=== PATIENT | female | born 1940 | race Caucasian/White ===

== ENCOUNTER 2020-04-24 14:27 | Outpatient (CLI) | payer MEDICARE, OTHER, SELFPAY ==
--- NOTE | 2020-05-01 09:26 | WPDPFTINT ---
PFT Interpretation PFT Interpretation: This PFT met all criteria for ATS standards and reproducibility FEV/FVC re bronchodilator 63% which improved to 72% post bronchodilator FEV1 100% FVC 95% TLC 107% RV 119% RV/TLC 47% DLCO 64% when adjusted for alveolar volume but not adjusted for hemoglobin Flow volume loops showed some expiratory coving Impression: Mild air flow obstruction with air trapping and mildly reduced diffusion capacity. This pattern fits that of COPD. Clinical correlation is advised.
--- NOTE | 2020-05-01 09:44 | WPDSIXMINUTE ---
Six Minute Walk Six Minute Walk: The patients O2 sats started at 97% and dropped as low as 95% Total walk distance 274.32 meters conclusion: This patient does not qualify for home oxygen use
== END 2020-04-24 14:28 | disposition home or self-care (01) ==
PROVIDERS: PCP Internal Medicine; Visit Provider Internal Medicine Pulmonary Disease
DX: R06.09 Other forms of dyspnea (principal); R94.2 Abnormal results of pulmonary function studies
CPT/HCPCS: 94060; 94618; 94726; 94729

== ENCOUNTER 2023-01-16 20:10 | Observation (INO) | payer MEDICARE, OTHER, SELFPAY ==
[2023-01-16] VITALS (20 sets, daily range): BP systolic 145–168; BP diastolic 74–98; PULSE 85–86; RESP 18; TEMP 36.9; O2SAT 91–100
--- NOTE | ~2023-01-16 | XR_ITS ---
EXAMINATION: XR knee RT min 4V DATE: 01/16/2023 20:38 INDICATION: Right knee pain post fall TECHNIQUE: Anteroposterior, 2 oblique and crosstable lateral views of the right knee were obtained COMPARISON: None. FINDINGS: Cemented right total knee arthroplasty with patellar resurfacing which appears well seated in near an atomic alignment. No periprosthetic lucency to suggest loosening or infection. No fracture. Large rig ht knee joint effusion. IMPRESSION: 1. Large right knee joint effusion. No acute osseous abnormality. Reviewed, dictated and finalized at location A.
--- NOTE | ~2023-01-16 | CT_ITS ---
EXAMINATION: CT knee RT wo con DATE: 01/16/2023 22:28 INDICATION: Right knee pain post injury TECHNIQUE: High resolution computed tomography (CT) of the right knee was performed without intraveno us contrast. Additional sagittal and coronal reconstructions were performed. Automated exposure contr ol and iterative reconstruction technique were employed. The dose-length product was 473.02 mGy-cm. COMPARISON: None FINDINGS: Right total knee arthroplasty with patellar resurfacing. Small nondisplaced fracture fragment underly ing the anterolateral rim of the trachea the tibial component. This is best appreciated on axial seri es 3, images 58 and 59 aNo evident fracture of the fixation cement or surrounding increased lucency t o suggest loosening. The femoral and patellar components are also well seated with no periprosthetic lucency or fracture. Alignment remains essentially anatomic. Moderate-sized layering lipohemarthrosis . IMPRESSION: 1. Moderate-sized lipohemarthrosis resulting from a nondisplaced small fracture underlying the chinmay lateral margin of the tray of the tibial component of a right total knee arthroplasty. Reviewed, dictated and finalized at location A. IMPRESSION: 1. Moderate-sized lipohemarthrosis resulting from a nondisplaced small fracture underlying the anterolateral margin of the tray of the tibial component of a r ight total knee arthroplasty.
--- NOTE | 2023-01-16 20:31 | ED.LOWEXIN ---
HPI - Extremity Injury (Lower) General Chief Complaint: Extremity Injury, Lower <Hallie Brand PA-C - Last Filed: 01/17/23 01:33> Stated Complaint: fall <DEVON Perdomo Last Filed: 01/17/23 01:33> Time Seen by Provider: 01/16/23 20:18 <DEVON Perdomo Last Filed: 01/17/23 01:33> Source: patient <DEVON Perdomo Last Filed: 01/17/23 01:33> Mode of arrival: EMS <DEVON Perdomo Last Filed: 01/17/23 01:33> Limitations: no limitations <DEVON Perdomo Last Filed: 01/17/23 01:33> History of Present Illness HPI Narrative: This is a 82-year-old female that presents to the emergency department after a ground-level fall with right knee injury. Reports she tripped and fell onto her right knee. She did not hit her head or lose consciousness. She was not having any prodromal symptoms. Reports since she has had swelling and pain to the right knee with decreased range of motion. She has previously had this knee replaced. Denies numbness. <Hallie Brand PA-C - Last Filed: 01/17/23 01:33> Related Data Home Medications: Home Medications Medication Instructions Recorded Confirmed calcium carbonate 500 mg calcium 500 mg PO DAILY 12/19/20 01/17/23 (1,250 mg) tablet (Calcium 500) diclofenac sodium 75 mg 75 mg PO BID 12/19/20 01/17/23 tablet,delayed release hydrochlorothiazide 25 mg tablet 25 mg PO DAILY 12/19/20 01/17/23 multivitamin (Daily Multi-Vitamin 1 tablet PO DAILY 12/19/20 01/17/23 tablet) omega 7-wre-wel-fish oil 300 2 cap PO BID 12/19/20 01/17/23 mg-1,000 mg capsule (Fish Oil) sertraline 50 mg tablet (Zoloft) 100 mg PO DAILY 12/19/20 01/17/23 irbesartan 75 mg tablet (Avapro) 75 mg PO HS 01/17/23 01/17/23 simvastatin 20 mg tablet 20 mg PO HS 01/17/23 01/17/23 <Hallie Brand PA-C - Last Filed: 01/17/23 01:33> Allergies/Adverse Reactions: Allergies Allergy/AdvReac Type Severity Reaction Status Date / Time nickel Allergy Mild Rash Verified 01/17/23 02:38 atenolol Allergy Unknown unknown Verified 01/17/23 02:37 metoprolol Allergy Unknown unknown Verified 01/17/23 02:37 <Hallie Brand PA-C - Last Filed: 01/17/23 01:33> Review of Systems Review of Systems: CONSTITUTIONAL: Denies fever MUSCULOSKELETAL: Reports joint pain and myalgia. Denies back pain NEUROLOGIC: Denies numbness, or weakness. <DEVON Perdomo Last Filed: 01/17/23 01:33> All systems reviewed & are unremarkable except as noted in HPI and below <Hallie Brand PA-C - Last Filed: 01/17/23 01:33> [facility] Past Medical History Medical History: Medical History Endometriosis History of pacemaker History of Parkinson's disease HLD (hyperlipidemia) HTN (hypertension) <Hallie Brand PA-C - Last Filed: 01/17/23 01:33> Surgical History Surgical History: Surgical History H/O: hysterectomy History of arthroscopy of right shoulder History of bilateral knee replacement <DEVON Perdomo Last Filed: 01/17/23 01:33> Family History Family History: Family History Father Heart attack <Hallie Brand PA-C - Last Filed: 01/17/23 01:33> Social History Social History: Social History Smoking status: Never smoker Alcohol intake: never Substance use: never Substance use type: does not use Lack of Transportation: No Lack of Food: Never True Current Housing: I Have Housing Concerned About Future Housing: No Difficulty Paying Gas/Electric Bills: No Difficulty Paying for Meds: No Currently Unemployed: No Education: Master's Degree or Higher Difficulty w/ Childcare or Family Care: No Living arrangements: with family Gender identity (if verbalized by the patient): Dawnaa
[2023-01-16] MEDS: MORPHINE SULFATE (*CRX) 4 MG/ML INJ IV PUSH (20:55)
[2023-01-16] MEDS: ONDANSETRON INJ 4 MG/2 ML VIAL IV PUSH (20:56)
--- NOTE | 2023-01-16 21:55 | PC.NURSE ---
nehal wrapped and will ambulate
[2023-01-17] VITALS (7 sets, daily range): BP systolic 115–156; BP diastolic 64–84; PULSE 86–94; RESP 16–18; TEMP 36.4–36.9; O2SAT 94–96; BMI 25.0
[2023-01-17] MEDS: HYDROcodone/acetaminophen (*CRX) 5-325 MG TABLET 1 TAB PO (00:56)
[2023-01-17 01:03] LABS: Alanine Aminotransferase 14 U/L (6-35); Albumin Level 3.8 g/dL (3.5-5.1); Alkaline Phosphatase 94 U/L (38-126); Anion Gap 3 mmol/L (8-16); Aspartate Amino Transferase 22 U/L (14-36); Bilirubin,Total 0.4 mg/dL (0.2-1.3); Blood Urea Nitrogen 19 mg/dL (7-17); Calcium 8.6 mg/dL (8.4-10.2); Carbon Dioxide 32 mmol/L (22-30); Chloride 99 mmol/L (98-107); Estimated CRCL calculation 43 ml/min; Estimated Glomerular Filt Rate > 60; Glucose 127 mg/dL (65-110); Potassium 3.7 mmol/L (3.4-5.0); Sodium 134 mmol/L (137-145)
[2023-01-17 01:14] LABS: Basophils Percent Auto 0.3 % (0.2-1.2); Eosinophils Absolute Auto 0.1 K/mm3 (0-0.3); Eosinophils Percent Auto 0.8 % (0-4.4); Hematocrit 35.3 % (37.0-47.0); Hemoglobin 11.6 g/dL (12.0-15.0); Immature Granulocyte Absolute 0.04 K/mm3 (0.00-0.031); Immature Granulocyte Percent A 0.3 % (0-0.5); Lymphocytes Absolute Auto 0.88 K/mm3 (0.9-3.2); Lymphocytes Percent Auto 7.6 % (18.3-44.2); Mean Corpuscular HGB Conc 32.9 g/dl (32-36); Mean Corpuscular Hemoglobin 30.1 pg (26-34); Mean Corpuscular Volume 91.5 fl (80-100); Mean Platelet Volume 9.5 fl (7.4-10.4); Monocytes Absolute Auto 0.9 K/mm3 (0.1-0.6); Neutrophils Absolute Auto 9.6 K/mm3 (1.3-6.7); Platelet Count Result 243 k/mm3 (150-375); Red Blood Count 3.86 M/mm3 (4.2-5.4); Red Cell Distribution Width 12.7 % (11.5-14.5); White Blood Count 11.6 K/mm3 (4.5-10.0)
--- NOTE | 2023-01-17 01:16 | PC.NURSE ---
pt given pain medication and immobilizer placed.
--- NOTE | 2023-01-17 01:31 | PC.NURSE ---
nehal wrap removed and knee immobilizer. Lolis
--- NOTE | 2023-01-17 02:30 | ADMGEN ---
This patient, Lizy Persaud, was admitted to Medical Room 342-01. Patient/family oriented to hospital policies and general routines including ID bracelet, bed and alarms, visiting hours, pain management, procedures, bathroom and other care routines, personal items, smoking policy, room service/diet, and visiting hours. Information on how to activate the Rapid Response Team has been discussed. Patient/Family are encouraged to report perceived risks to care and to ask questions if they do not understand what they are told or what they should do.
--- NOTE | 2023-01-17 03:43 | PC.NURSE ---
PATIENT VOICED REQUEST FOR NO LIFE SUSTAINING INTERVENTIONS. WITNESSED BY Santy Randolph
--- NOTE | 2023-01-17 09:02 | PM.IMHP ---
H&P: HPI History of Present Illness Date/Time: 01/17/23 09:02 Chief Complaint: This is an 82 year old female with a PMH of parkinsons's who follows with neurology here, HTN, anxiety, HLD, arthritis, and heart disease. She comes to the ED today after falling and landing on her right knee. She has a history of R knee replacement. Today she has swelling and pain to the knee with decreased ROM. She denies numbness. CT of the knee with no visual fracture, however it shows lipohemarthrosis which is usually seen in setting of fracture. Will consult orthopedics to help with further fracture rule out. Patient is unable to have an MRI because of her pacemaker per radiology. 01/17: Patient is seen today resting in bed with family at bedside. She appears well. She reports falling at home after getting tripped up on her carpet. She was wearing nonskid shoes and she does admit to a shuffling her feet related to her Parkinson's. Unfortunately she tripped over her feet and fell onto her right knee. Since then she has redness and swelling to the right knee with limited range of motion and pain elicited with lifting her legs. She reports that she had a knee replacement done in that leg. She lives at home with her who has non treatable lung cancer so she normally cares for him and she is concerned about needing assistance herself now that she has injured her leg. It sounds like she has good family support that will be able to help with her recovery. She denies dizziness and headache. No chest pain but she does report some shortness of breath when ambulating more than 100 ft which she contributes to her Parkinson's. Denies cough fever chills. She reports a decreased appetite over the last year with a 10 lb weight loss. She says that food just does not taste as well as it used to and she also just does not like to cook as much as she used to. She denies nausea vomiting diarrhea. Sometimes she has constipation but generally she goes once a day. If she has trouble she will take magnesium and this seems to help. Last bowel movement was yesterday. Otherwise she has no other complaints. I have reviewed the plan of care with her today with consulting Ortho. And getting an MRI however the bedside nurse updated me that patient is unable to have an MRI because of her pacemaker. Await further recs from Ortho. Right now her right leg is in a knee immobilizer and she is on bedrest. Review of Systems Review of Systems: All systems reviewed & are unremarkable except as noted in HPI and below PMFSH Past Medical History Medical History Endometriosis History of pacemaker History of Parkinson's disease HLD (hyperlipidemia) HTN (hypertension) Surgical History Surgical History H/O: hysterectomy History of arthroscopy of right shoulder History of bilateral knee replacement Family History Family History Father Heart attack Social History Social History Smoking status: Never smoker Alcohol intake: never Substance use: never Substance use type: does not use Lack of Transportation: No Lack of Food: Never True Current Housing: I Have Housing Concerned About Future Housing: No Difficulty Paying Gas/Electric Bills: No Difficulty Paying for Meds: No Currently Unemployed: No Education: Master's Degree or Higher Difficulty w/ Childcare or Family Care: No Living arrangements: with family Gender identity (if verbalized by the patient): Female Spiritual care concerns: No Meds Home Medications and Allergies Home Medications Medication Instructions Recorded Confirmed Type calcium carbonate 500 mg calcium 500 mg PO DAILY 12/19/20 01/17/23 History (1,250 mg) tablet (Calcium 500) diclofenac sodium 75 mg 7
--- NOTE | 2023-01-17 10:09 | PM.CNOR ---
Assessment and Plan Assessment and plan (1) Periprosthetic fracture around internal prosthetic knee joint: Code(s): M97.8XXA - Periprosthetic fracture around other internal prosthetic joint, initial encounter; Z96.659 - Presence of unspecified artificial knee joint Status: Acute (2) Status post total knee replacement, right: Code(s): Z96.651 - Presence of right artificial knee joint Status: Acute (3) Fracture of proximal end of right tibia: Qualifiers: Encounter type: initial encounter Fracture type: closed Fracture morphology: other fracture Qualified Code(s): S82.191A - Other fracture of upper end of right tibia, initial encounter for closed fracture Code(s): S82.101A - Unspecified fracture of upper end of right tibia, initial encounter for closed fracture Status: Acute Plan Non displaced fracture of the cortical margin of the proximal lateral tibia plateau. Implants appear intact. May mobilize as tolerated, partial wb with knee immobilizer when ambulating. Therapy consulted. Knee immobilizer fit and adjusted now. Good candidate for rehab. Anticipate excellent rehab potential over the next 2-4 weeks. History of Present Illness HPI Consult date: 01/18/23 Consult reason: fracture Chief complaint: Internal Derangement Right Knee/Gait Disturbance Narrative: 82-year-old female status post total knee in the past previously doing well, tripped and fell onto the right knee. Complains of severe pain and inability to manage at home. Went to the emergency department and was admitted for further evaluation and management. Great difficulty putting any weight on the knee and pain with any activity. PMH of Parkinson's who follows with neurology here, HTN, anxiety, HLD, arthritis, and heart disease.? Review of Systems Review of Systems: All systems reviewed & are unremarkable except as noted in HPI and below PMFSH Past Medical History Medical History Endometriosis History of pacemaker History of Parkinson's disease HLD (hyperlipidemia) HTN (hypertension) Surgical History Surgical History H/O: hysterectomy History of arthroscopy of right shoulder History of bilateral knee replacement Family History Family History Father Heart attack Social History Social History Smoking status: Never smoker Alcohol intake: never Substance use: never Substance use type: does not use Lack of Transportation: No Lack of Food: Never True Current Housing: I Have Housing Concerned About Future Housing: No Difficulty Paying Gas/Electric Bills: No Difficulty Paying for Meds: No Currently Unemployed: No Education: Master's Degree or Higher Difficulty w/ Childcare or Family Care: No Living arrangements: with family Gender identity (if verbalized by the patient): Female Spiritual care concerns: No Meds Home Medications and Allergies Home Medications Medication Instructions Recorded Confirmed Type calcium carbonate 500 mg calcium 500 mg PO DAILY 12/19/20 01/17/23 History (1,250 mg) tablet (Calcium 500) diclofenac sodium 75 mg 75 mg PO BID 12/19/20 01/17/23 History tablet,delayed release hydrochlorothiazide 25 mg tablet 25 mg PO DAILY 12/19/20 01/17/23 History multivitamin (Daily Multi-Vitamin 1 tablet PO DAILY 12/19/20 01/17/23 History tablet) omega 5-loe-rrn-fish oil 300 2 cap PO BID 12/19/20 01/17/23 History mg-1,000 mg capsule (Fish Oil) sertraline 50 mg tablet (Zoloft) 100 mg PO DAILY 12/19/20 01/17/23 History carbidopa 25 mg-levodopa 100 mg See Rx Instructions .Route 01/13/23 01/17/23 Rx tablet .COMPLEX #450 tabs clorazepate dipotassium 3.75 mg 3.75 mg PO QHS PRN anxiety #90 tabs 01/13/23 01/17/23 Rx tablet cindy
[2023-01-17] MEDS: CARBIDOPA/LEVODOPA 25/100 MG TABLET 1 TABLET BY MOUTH ×2 (16:13→21:12)
[2023-01-17] MEDS: CARBIDOPA/LEVODOPA 12.5/50 MG TABLET 1 TABLET PO (16:13)
[2023-01-17] MEDS: OMEGA 3 POLYUNSAT FATTY ACIDS 1 GM CAP 2 GM PO (16:13)
[2023-01-18 03:34] VITALS: BP 144/72; PULSE 86; RESP 18; TEMP 36.2; O2SAT 91
[2023-01-18 06:02] LABS: Basophils Percent Auto 0.2 % (0.2-1.2); Eosinophils Absolute Auto 0.2 K/mm3 (0-0.3); Eosinophils Percent Auto 2.3 % (0-4.4); Hemoglobin 11.3 g/dL (12.0-15.0); Immature Granulocyte Absolute 0.02 K/mm3 (0.00-0.031); Immature Granulocyte Percent A 0.2 % (0-0.5); Lymphocytes Absolute Auto 0.91 K/mm3 (0.9-3.2); Lymphocytes Percent Auto 10.7 % (18.3-44.2); Mean Corpuscular HGB Conc 32.3 g/dl (32-36); Mean Corpuscular Hemoglobin 29.9 pg (26-34); Mean Corpuscular Volume 92.6 fl (80-100); Mean Platelet Volume 9.9 fl (7.4-10.4); Monocytes Absolute Auto 0.8 K/mm3 (0.1-0.6); Monocytes Percent Auto 9.5 % (2.6-8.5); Neutrophils Absolute Auto 6.6 K/mm3 (1.3-6.7); Neutrophils Percent Auto 77.1 % (45.5-73.1); Platelet Count Result 201 k/mm3 (150-375); Red Blood Count 3.78 M/mm3 (4.2-5.4); Red Cell Distribution Width 12.5 % (11.5-14.5); White Blood Count 8.5 K/mm3 (4.5-10.0)
[2023-01-18 06:19] LABS: Alanine Aminotransferase 11 U/L (6-35); Albumin Level 3.5 g/dL (3.5-5.1); Alkaline Phosphatase 81 U/L (38-126); Anion Gap 2 mmol/L (8-16); Aspartate Amino Transferase 31 U/L (14-36); Bilirubin,Total 0.5 mg/dL (0.2-1.3); Blood Urea Nitrogen 16 mg/dL (7-17); Calcium 8.5 mg/dL (8.4-10.2); Carbon Dioxide 31 mmol/L (22-30); Chloride 101 mmol/L (98-107); Cholesterol 192 mg/dL (0-200); Estimated CRCL calculation 38 ml/min; Estimated Glomerular Filt Rate > 60; Glucose 101 mg/dL (65-110); HDL Direct 38 mg/dL; Phosphorus 3.1 mg/dL (2.5-4.5); Potassium 3.7 mmol/L (3.4-5.0); Sodium 134 mmol/L (137-145); Triglycerides 78 mg/dL (<150)
[2023-01-18 06:30] LABS: LDL Cholesterol Direct 124 mg/dL
[2023-01-18 06:32] LABS: Iron 32 ug/dL (37-170)
[2023-01-18 06:37] LABS: Vitamin D 25 Hydroxy 69.4 ng/mL
[2023-01-18 06:41] LABS: Percent Iron Saturation 13 % (20-50)
[2023-01-18 08:30] VITALS: BP 141/72
[2023-01-18] MEDS: IRBESARTAN 75 MG TABLET PO (08:36)
[2023-01-18] MEDS: MULTIVITAMINS THERAPEUTIC TAB (*BKC) 1 TABLET PO (08:36)
[2023-01-18] MEDS: OMEGA 3 POLYUNSAT FATTY ACIDS 1 GM CAP 2 GM PO ×2 (08:36→17:38)
[2023-01-18] MEDS: SERTRALINE HCL 50 MG TABLET PO (08:36)
[2023-01-18] MEDS: CYANOCOBALAMIN 500 MCG TABLET PO (08:36)
[2023-01-18] MEDS: FOLIC ACID 0.4 MG TABLET PO (08:36)
[2023-01-18] MEDS: CALCIUM CARBONATE (OSCAL) 500 MG TABLET PO (08:36)
[2023-01-18] MEDS: hydroCHLOROthiazide 25 MG TABLET PO (08:36)
--- NOTE | 2023-01-18 08:39 | PM.IMPN ---
Progress Note: A&P Assessment and Plan (1) Acute internal derangement of knee: Qualifiers: Laterality: right Qualified Code(s): M23.91 - Unspecified internal derangement of right knee Code(s): M23.90 - Unspecified internal derangement of unspecified knee Status: Acute Assessment and Plan: -Hemarthrosis right knee. Initial CT and XR show no obvious fracture but there are still concerns for occult fracture. -Unable to have MRI because of her pacemaker. -consulting orthopedics for further assistance in treatment, appreciate rec's. -Knee immobilizer in place. Activity as tolerated with partial weight bearing to RLE with knee immobilizer per ortho. -Iron low on labs but can't take oral ferrous sulfate with Parkinson meds. Will give 1 x infusion of IV iron before d/c. -PT/OT scheduled. Will see how patient does with mobility and therapy recs for dispo. If no intervention is necessary by ortho then she will be ready to d/c once we know where she is going for rehab vs snf. (2) Anxiety: Code(s): F41.9 - Anxiety disorder, unspecified Status: Acute Assessment and Plan: Stable. Takes hydroxyzine 10 mg PO prn. (3) Parkinsons: Code(s): G20 - Parkinson's disease Status: Acute Assessment and Plan: -Follows here at [facility] with neurology -Continue with Carbidopa 25 mg-Levodopa 100 mg (4) HTN (hypertension): Code(s): I10 - Essential (primary) hypertension Status: Acute Assessment and Plan: Blood pressures are elevated from baseline but this is likely pain related. Continue to monitor, ensure adequate pain regimen, and restart home anti-hypertensives. (5) HLD (hyperlipidemia): Code(s): E78.5 - Hyperlipidemia, unspecified Status: Acute Assessment and Plan: -continue fish oil -lipid panel WNL Subjective Date/time seen: 01/18/23 08:39 Interval history: Chief Complaint: This is an 82 year old female with a PMH of parkinsons's who follows with neurology here, HTN, anxiety, HLD, arthritis, and heart disease. She comes to the ED today after falling and landing on her right knee. She has a history of R knee replacement. Today she has swelling and pain to the knee with decreased ROM. She denies numbness. CT of the knee with no visual fracture, however it shows lipohemarthrosis which is usually seen in setting of fracture. Will consult orthopedics to help with further fracture rule out. Patient is unable to have an MRI because of her pacemaker per radiology. 01/17:? Patient is seen today resting in bed with family at bedside.? She appears well.? She reports falling at home after getting tripped up on her carpet.? She was wearing nonskid shoes and she does admit to a shuffling her feet related to her Parkinson's.? Unfortunately she tripped over her feet and fell onto her right knee.? Since then she has redness and swelling to the right knee with limited range of motion and pain elicited with lifting her legs.? She reports that she had a knee replacement done in that leg.? She lives at home with her who has non treatable lung cancer so she normally cares for him and she is concerned about needing assistance herself now that she has injured her leg.? It sounds like she has good family support that will be able to help with her recovery.? She denies dizziness and headache.? No chest pain but she does report some shortness of breath when ambulating more than 100 ft which she contributes to her Parkinson's.? Denies cough fever chills.? She reports a decreased appetite over the last year with a 10 lb weight loss.? She says that food just does not taste as well as it used to and she also just does not like to cook as much as she used to.? She denies nausea vomiting diarrhea.? Sometimes she has constipation but generally she goes once a day.? If she has trouble she will take magnesium and this seems to help.? Last bowel movement was yesterday.? Otherwise she has
--- NOTE | 2023-01-18 09:06 | PCPTNOTE ---
Patient refused treatment this session. Patient reported she did not feel like doing therapy at this time and asked PT to come back later. Patient reported I'm just really down in the dumps right now. RN aware.
[2023-01-18] MEDS: IRON SUCROSE COMPLEX 200 MG in SODIUM CHLORIDE 0.9% IV 50 ML 120 MG IVPB (09:17)
[2023-01-18 11:49] VITALS: BMI 25.0
[2023-01-18] MEDS: CARBIDOPA/LEVODOPA 12.5/50 MG TABLET 1 TABLET PO ×2 (12:39→15:12)
[2023-01-18] MEDS: CARBIDOPA/LEVODOPA 25/100 MG TABLET 1 TABLET BY MOUTH ×3 (12:39→20:39)
[2023-01-18 16:14] VITALS: BP 129/77; PULSE 90; RESP 18; TEMP 37.1; O2SAT 95
[2023-01-18 20:00] VITALS: BP 128/79; PULSE 90; RESP 18; TEMP 36.7; O2SAT 96
[2023-01-19 05:47] LABS: Basophils Percent Auto 0.2 % (0.2-1.2); Eosinophils Absolute Auto 0.2 K/mm3 (0-0.3); Eosinophils Percent Auto 2.6 % (0-4.4); Hemoglobin 11.6 g/dL (12.0-15.0); Immature Granulocyte Absolute 0.03 K/mm3 (0.00-0.031); Immature Granulocyte Percent A 0.3 % (0-0.5); Lymphocytes Absolute Auto 1.15 K/mm3 (0.9-3.2); Lymphocytes Percent Auto 13.2 % (18.3-44.2); Mean Corpuscular HGB Conc 32.2 g/dl (32-36); Mean Corpuscular Hemoglobin 29.7 pg (26-34); Mean Corpuscular Volume 92.3 fl (80-100); Mean Platelet Volume 9.8 fl (7.4-10.4); Monocytes Absolute Auto 0.9 K/mm3 (0.1-0.6); Monocytes Percent Auto 10.1 % (2.6-8.5); Neutrophils Absolute Auto 6.4 K/mm3 (1.3-6.7); Neutrophils Percent Auto 73.6 % (45.5-73.1); Platelet Count Result 223 k/mm3 (150-375); Red Cell Distribution Width 12.8 % (11.5-14.5); White Blood Count 8.7 K/mm3 (4.5-10.0)
[2023-01-19 05:50] VITALS: BP 104/53; PULSE 77; RESP 16; TEMP 36.7; O2SAT 93
[2023-01-19 06:02] LABS: Alanine Aminotransferase 16 U/L (6-35); Albumin Level 3.6 g/dL (3.5-5.1); Alkaline Phosphatase 83 U/L (38-126); Anion Gap 5 mmol/L (8-16); Aspartate Amino Transferase 23 U/L (14-36); Bilirubin,Total 0.6 mg/dL (0.2-1.3); Blood Urea Nitrogen 14 mg/dL (7-17); Carbon Dioxide 31 mmol/L (22-30); Chloride 98 mmol/L (98-107); Estimated CRCL calculation 43 ml/min; Estimated Glomerular Filt Rate > 60; Glucose 105 mg/dL (65-110); Potassium 3.5 mmol/L (3.4-5.0); Sodium 134 mmol/L (137-145)
--- NOTE | 2023-01-19 08:23 | PM.DS ---
DS: Admitting Diagnosis Discharge Date January 19 Admitting Diagnosis fall, right knee pain DS: Discharge Diagnosis Discharge Diagnosis (1) Acute internal derangement of knee: Qualifiers: Laterality: right Qualified Code(s): M23.91 - Unspecified internal derangement of right knee Code(s): M23.90 - Unspecified internal derangement of unspecified knee Status: Ruled-out Assessment and Plan: -Hemarthrosis right knee. Initial CT and XR show no obvious fracture but there are still concerns for occult fracture. -Unable to have MRI because of her pacemaker. -consulting orthopedics for further assistance in treatment, appreciate rec's. -Knee immobilizer in place. Activity as tolerated with partial weight bearing to RLE with knee immobilizer per ortho. -Iron low on labs but can't take oral ferrous sulfate with Parkinson meds. Will give 1 x infusion of IV iron before d/c. -PT/OT scheduled. Will see how patient does with mobility and therapy recs for dispo. If no intervention is necessary by ortho then she will be ready to d/c once we know where she is going for rehab vs snf. (2) Anxiety: Code(s): F41.9 - Anxiety disorder, unspecified Status: Acute Assessment and Plan: Stable. Takes hydroxyzine 10 mg PO prn. (3) Parkinsons: Code(s): G20 - Parkinson's disease Status: Acute Assessment and Plan: -Follows here at [facility] with neurology -Continue with Carbidopa 25 mg-Levodopa 100 mg (4) HTN (hypertension): Code(s): I10 - Essential (primary) hypertension Status: Acute Assessment and Plan: Blood pressures are elevated from baseline but this is likely pain related. Continue to monitor, ensure adequate pain regimen, and restart home anti-hypertensives. (5) HLD (hyperlipidemia): Code(s): E78.5 - Hyperlipidemia, unspecified Status: Acute Assessment and Plan: -continue fish oil -lipid panel WNL Plan Unfortunately patient's who has been on hospice today and the patient needs to leave the hospital to make arrangements. She is medically cleared for discharge we were just waiting for her to have therapy recommendations for placement. Liz, careers counsellor will give patient contact information for [facility] so that she may follow up with this for admission should she feel she is not doing well enough at home. DS: Summary Hospital Course Reason for hospitalization: fall Hospital Course: Chief Complaint: This is an 82 year old female with a PMH of parkinsons's who follows with neurology here, HTN, anxiety, HLD, arthritis, and heart disease. She comes to the ED today after falling and landing on her right knee. She has a history of R knee replacement. Today she has swelling and pain to the knee with decreased ROM. She denies numbness. CT of the knee with no visual fracture, however it shows lipohemarthrosis which is usually seen in setting of fracture. Will consult orthopedics to help with further fracture rule out. Patient is unable to have an MRI because of her pacemaker per radiology. 01/17:? Patient is seen today resting in bed with family at bedside.? She appears well.? She reports falling at home after getting tripped up on her carpet.? She was wearing nonskid shoes and she does admit to a shuffling her feet related to her Parkinson's.? Unfortunately she tripped over her feet and fell onto her right knee.? Since then she has redness and swelling to the right knee with limited range of motion and pain elicited with lifting her legs.? She reports that she had a knee replacement done in that leg.? She lives at home with her who has non treatable lung cancer so she normally cares for him and she is concerned about needing assistance herself now that she has injured her leg.? It sounds like she has good family support that will be able to help with her recovery.? She denies dizziness and headache.? No chest
--- NOTE | 2023-01-19 08:28 | PCPTNOTE ---
Physical therapy told to hold off on seeing patient secondary to patient's passed last night.
[2023-01-19] MEDS: CARBIDOPA/LEVODOPA 12.5/50 MG TABLET 1 TABLET PO (09:02)
[2023-01-19] MEDS: CYANOCOBALAMIN 500 MCG TABLET PO (09:02)
[2023-01-19] MEDS: OMEGA 3 POLYUNSAT FATTY ACIDS 1 GM CAP 2 GM PO (09:02)
[2023-01-19] MEDS: CARBIDOPA/LEVODOPA 25/100 MG TABLET 1 TABLET BY MOUTH (09:02)
[2023-01-19] MEDS: CALCIUM CARBONATE (OSCAL) 500 MG TABLET PO (09:02)
[2023-01-19] MEDS: MULTIVITAMINS THERAPEUTIC TAB (*BKC) 1 TABLET PO (09:02)
[2023-01-19] MEDS: IRBESARTAN 75 MG TABLET PO (09:02)
[2023-01-19] MEDS: hydroCHLOROthiazide 25 MG TABLET PO (09:02)
[2023-01-19] MEDS: SERTRALINE HCL 50 MG TABLET PO (09:03)
[2023-01-19] MEDS: FOLIC ACID 0.4 MG TABLET PO (09:15)
[2023-01-22 04:40] LABS: Red Blood Cell Folate 837 ng/mL RBC (>280)
== END 2023-01-19 10:30 | disposition home or self-care (01) ==
LOC: ANHED 01-17 00:47 → ANH3MED 01-17 01:59
PROVIDERS: Nurse Practitioner Acute Care; Admitting Provider Internal Medicine; Emergency Provider Physician Assistant; PCP Internal Medicine; Visit Provider Internal Medicine
DX: M23.90 Unspecified internal derangement of unspecified knee (principal); Z96.651 Presence of right artificial knee joint; F41.9 Anxiety disorder, unspecified; G20 Parkinson's disease; I10 Essential (primary) hypertension; E78.5 Hyperlipidemia, unspecified; M19.90 Unspecified osteoarthritis, unspecified site; I51.9 Heart disease, unspecified; R63.0 Anorexia; Z68.25 Body mass index [BMI] 25.0-25.9, adult; R06.02 Shortness of breath; Z95.0 Presence of cardiac pacemaker; Z79.899 Other long term (current) drug therapy
CPT/HCPCS: 36415; 73564; 73700; 80053; 80061; 82306; 82607; 82747; 83540; 83550; 83735; 84100; 85025; 96365; 96374; 96375; 97110; 97116; 97161; 97530; 99285; A9270; G0378; J1756; J2270; J2405